=== PATIENT | female | born 1985 | race African-American/Black ===

== ENCOUNTER 2016-08-08 19:51 | Emergency (ER) | payer SELFPAY ==
[2016-08-08 20:09] VITALS: BP 156/107
[2016-08-08] MEDS ORDERED: Orphenadrine 100 MG Tab.ER PO STA (22:10)
--- NOTE | 2016-08-08 22:17 | EDM.PDOC ---
ED HPI GENERAL MEDICAL PROBLEM - General Chief Complaint: Back Pain or Injury Stated Complaint: BACK PAIN Time Seen by Provider: 08/08/16 20:08 Source of Information: Reports: Patient, RN Notes Reviewed History Limitations: Reports: No Limitations - History of Present Illness INITIAL COMMENTS - FREE TEXT/NARRATIVE: The patient states that she developed right flank pain that radiated to her right lower quadrant this past Sunday morning, 08/06/2016. It is throbbing in character and constant. She has not identified any modifiers. No recent fever, chills, nausea, vomiting, constipation, or diarrhea. She states that she does not have any dysuria, but she has been urinating frequently. She states that she had similar symptoms about a year ago, except that the pain at that time was modified with position. This recent pain is not. She did not seek medical evaluation, and states that it eventually resolved after 3-4 days. The patient states that she had some vaginal spotting yesterday, 08/07/2016. The patient does not have a PCP. 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 Endocrine/Metabolic History: Reports: Obesity/BMI 30+ Social & Family History - Family History Family Medical History: Noncontributory - Tobacco Use Smoking Status *Q: Never Smoker - Caffeine Use Caffeine Use: Reports: Coffee - Alcohol Use Alcohol Use History: Yes Alcohol Use Frequency: Socially - Recreational Drug Use Recreational Drug Use: No - Living Situation & Occupation Living situation: Reports: Single, with Significant Other (Boyfriend) Occupation: Unemployed ED ROS GENERAL - Review of Systems Review Of Systems: See Below Constitutional: Reports: No Symptoms HEENT: Reports: No Symptoms Respiratory: Reports: No Symptoms Cardiovascular: Reports: No Symptoms Endocrine: Reports: No Symptoms GI/Abdominal: Reports: No Symptoms : Reports: No Symptoms Musculoskeletal: Reports: No Symptoms Skin: Reports: No Symptoms Neurological: Reports: No Symptoms Psychiatric: Reports: No Symptoms Hematologic/Lymphatic: Reports: No Symptoms Immunologic: Reports: No Symptoms ED EXAM, GENERAL - Physical Exam Exam: See Below Exam Limited By: No Limitations General Appearance: Alert, WD/WN, No Apparent Distress Eye Exam: Bilateral Eye: Normal Inspection Ears: Normal External Exam, Hearing Grossly Normal Nose: Normal Inspection, No Blood Throat/Mouth: Normal Inspection, Normal Lips, Normal Voice, No Airway Compromise Head: Atraumatic, Normocephalic Neck: Normal Inspection, Full Range of Motion Respiratory/Chest: No Respiratory Distress, Lungs Clear, Normal Breath Sounds, No Accessory Muscle Use Cardiovascular: Normal Peripheral Pulses, Regular Rate, Rhythm, No Gallop, No JVD, No Murmur, No Rub GI/Abdominal: Normal Bowel Sounds, Soft, Non-Tender, No Organomegaly, No Distention, No Abnormal Bruit, No Mass, Other (Obese) (Female) Exam: Deferred Rectal (Female) Exam: Deferred Back Exam: Normal Inspection, Full Range of Motion. No: CVA Tenderness (L), CVA Tenderness (R) Extremities: Normal Inspection, Normal Range of Motion, No Pedal Edema, Normal Capillary Refill Neurological: Alert, Oriented, Normal Cognition, No Motor/Sensory Deficits Psychiatric: Normal Affect Skin Exam: Warm, Dry, Intact, Normal Color, No Rash Lymphatic: No Adenopathy Course - Vital Signs Last Recorded V/S: Last Vital Signs Temp 36.7 C 08/08/16 20:04 Pulse 75 08/08/16 20:04 Resp 18 08/08/16 20:04 BP 156/107 H 08/08/16 20:04 Pulse Ox 100 08/08/16 20:04 - Orders/Labs/Meds Labs: Laboratory Tests 08/08/16 08/08/16 Range/Units 21:00 21:00 Urine Color Yellow (Yellow) Urine Appearance Clear (Clear) Urine pH 6.0 (5.0-8.0) Ur Specific [place] > or = 1.030 (1.005-1.030) Urine Protein Negative (Negative) Urine Glucose (UA) Negative (Negative) Urine Ketones Negative (Negative) Urine Occult Blood Negative (Negative) Urine Nitrite Negative (Negative) Urine Bilirubin Negative (Negative) Urine Urobilinogen 0.2 (0.2-1.0) Ur Leukocyte Esterase Negative (Negative) Urine RBC 0-5 (0-5) /hpf Urine WBC 0-5 (0-5) /hpf Ur Epithelial Cells 0-5 (0-5) /hpf Urine Bacteria Not seen (FEW) /hpf Urine Mucus Few (FEW) /hpf Urine HCG, Qual Negative (NEGATIVE) Meds: Medications Discontinued Medications Generic Name Dose Route Start Last Admin Trade Name Teresa PRN Reason Stop Dose Admin Orphenadrine Citrate 100 mg 08/08/16 22:10 08/08/16 22:15 Norflex PO 08/08/16 22:11 100 mg ONETIME STA Administration - Re-Assessments/Exams Free Text/Narrative Re-Assessment/Exam: 08/08/16 22:12 Urinalysis results discussed with the patient. The patient's urinalysis is completely normal, with no microscopic hematuria or suggestion of a UTI. This makes a ureterolith highly unlikely. The patient's pain is therefore most likely due to a muscle spasm. I will start the patient on Norflex and e- prescribe the same. I will refer her to the clinic for follow-up, should her symptoms persist. Departure - Departure Time of Disposition: 22:13 Disposition: Home, Self-Care 01 Condition: Good Clinical Impression: Muscle spasm of back - Discharge Information Prescriptions: Orphenadrine [Norflex] 1 tab PO Q12H #20 tab.er Instructions: Muscle Cramps and Spasms Referrals: PCP,None [Primary Care Provider] - Estefany Langford PA-C [Physician Tip Puncher] - Forms: ED Department Discharge Additional Instructions: You were seen in the emergency room for right flank pain, radiating to your right groin. Workup in the ER included a urinalysis and urine test. Your tests were entirely normal. No blood in your urine makes a kidney stone highly unlikely. Based on your history and physical examination, it is MOST LIKELY that your pain is due to a muscle spasm. You have been started on the muscle relaxant Norflex. Take 1 tablet every 12 hours, as prescribed. If your symptoms persist, please follow-up with Estefany Langford in the clinic. If any other problems, please do not hesitate to return to the ER.
== END 2016-08-08 22:25 | disposition home or self-care (01) ==
LOC: JD.ED 19:51
DX: M62.830 Muscle spasm of back (principal); E66.9 Obesity, unspecified; Z68.36 Body mass index [BMI] 36.0-36.9, adult
CPT/HCPCS: 81001; 81025; 99284; A9270; P9612; 99283

== ENCOUNTER 2019-11-12 11:07 | Inpatient (IN) | payer SELFPAY ==
[2019-11-12] MEDS ORDERED: Nalbuphine 10 MG/ML Syringe IVPUSH PRN (15:03)
[2019-11-12] MEDS ORDERED: Sodium Chloride 0.9% 10 ML Syringe FLUSH PRN (15:03)
[2019-11-12] MEDS ORDERED: Oxytocin/Lactated Ringers 10 UNIT/1,000 ML BAG IV SCH ×2 (15:03)
[2019-11-12] MEDS ORDERED: Calcium Gluconate 10% 1 GM/10 ML SDV IV PRN (15:03)
--- NOTE | 2019-11-12 15:13 | PCM.LDHP ---
L&D History of Present Illness - General Date of Service: 11/12/19 Admit Problem/Dx: Patient Status Order with Admit Dx/Problem 11/12/19 15:03 Patient Status [ADT] Routine Admission Diagnosis/Problem Admission Diagnosis/Problem Gestational hypertension Source of Information: Patient History Limitations: Reports: No Limitations - History of Present Illness Introduction:: Mallorie Montgomery is a 34-year-old -0-0-0 at 37 weeks 6 days (KIKE 11/27/2019) who presents for evaluation of possible gestational hypertension. She was seen in the clinic prior to being sent down to labor and delivery with an elevated blood pressure of 144/94. She denied any headaches, vision changes or epigastric pain. She was otherwise doing well at that visit and was only having some irregular contractions that she was feeling several times per hour. She denied any leaking of fluid or vaginal bleeding. She was feeling good movement. Associated Symptoms: Denies: vaginal bleeding, vaginal discharge, vaginal fluid Present Illness Comments:: Mallorie Montgomery is a 34-year-old -0-0-0 female at 37 weeks 6 days (KIKE 11/27/2019) who presents for evaluation of possible gestational hypertension after being seen in the clinic with elevated blood pressures there. She has had routine care with myself, Dr. Henriquez, starting at 10 weeks gestational age. Her has been overall uncomplicated until her visit in the office on 11/12/2019. She received Tdap vaccine on 10/08/2019. She declined flu vaccine in . Her is complicated by: * History of aspirin allergy. She did not take aspirin throughout for preeclampsia prophylaxis due to this allergy. Patient also has allergy to ibuprofen. Recommend avoid aspirin or ibuprofen after delivery. * ancestry with normal hemoglobinopathy testing * Carpal tunnel syndrome in bilateral hands in labs Blood type: O+ Antibody screen: Negative First trimester hematocrit/hemoglobin: 40.0%/13.2 on 05/07/2019 Platelets: 267 on 05/07/2019 Urine culture: Mixed kenny suggestive of contamination Rubella status: Immune Hepatitis B surface antigen: Negative RPR: Negative HIV: Negative Gonorrhea: Negative Chlamydia: Negative Hemoglobin solubility: Negative screening Anatomy ultrasound: Normal, no abnormalities, weight in the 40th percentile on most recent ultrasound on 08/06/2019, normal fluid at that time One hour glucose tolerance test: 114 Second trimester hematocrit/hemoglobin: 37.1%/12.2 on 09/10/2019 Platelets: 215 on 09/10/2019 GBS status: Negative on 11/05/2019 - Related Data Allergies/Adverse Reactions: Allergies Allergy/AdvReac Type Severity Reaction Status Date / Time No Known Allergies Allergy Verified 08/08/16 20:09 Home Medications: Home Meds Orphenadrine [Norflex] 1 tab PO Q12H #20 tab.er 08/08/16 [Rx] Past Medical History - Past Health History Medical/Surgical History: Denies 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 : 1 Para: 0 Endocrine/Metabolic History: Reports: Obesity/BMI 30+ Other Endocrine/Metabolic History: PCOS Social & Family History - Family History Family Medical History: Noncontributory - Tobacco Use Smoking Status *Q: Never Smoker Tobacco Use Within Last Twelve Months: No - Tobacco Core Measures Tobacco Use/Smoking Within Last 30 Days: No Smokeless Tobacco Use in Last 30 Days: No - Caffeine Use Caffeine Use: Reports: Coffee - Alcohol Use Alcohol Use History: No - Recreational Drug Use Recreational Drug Use: No Drug Use in Last 12 Months: No - Living Situation & Occupation Living situation: Reports: Single, with Significant Other (Boyfriend) Occupation: Unemployed H&P Review of Systems - Review of Systems: Review Of Systems: See Below General: Denies: Fever, Malaise, Weakness, Fatigue, Night Sweats HEENT: Reports: Glasses. Denies: Headaches, Hearing Changes, Post Nasal Drip, Sinus Congestion, Sore Throat, Visual Changes Pulmonary: Denies: Shortness of Breath, Wheezing, Pleuritic Chest Pain, Cough Cardiovascular: Denies: Chest Pain, Palpitations, Dyspnea on Exertion, Orthopnea Gastrointestinal: Reports: Constipation. Denies: Abdominal Pain, Diarrhea, Nausea, Vomiting Genitourinary: Denies: Dysuria, Frequency, Burning, Pain, Urgency Musculoskeletal: Reports: Back Pain (and hip pain of ) Skin: Denies: Rash, Lesions Psychiatric: Denies: Depression, Anxiety Neurological: Reports: Numbness (left arm), Tingling (left arm). Denies: Confusion, Difficulty Walking Hematologic/Lymphatic: Denies: Anemia L&D Exam - Exam Exam: See Below - Vital Signs Vital Signs: Last Vital Signs Temp Pulse Resp 16 11/12/19 11:18 BP 140/97 H 11/12/19 11:18 Pulse Ox 97 11/12/19 11:18 Weight: 117.027 kg - OB Specific Fundal Height In cm: 38 Contraction Duration (sec): 45-90 Contraction Frequency (min): 2-11 Contraction Intensity: Mild to Moderate Movement: Active Heart Tones: Present Heart Tones per Min: 140 (+15 x 15 accelerations, no decelerations) Heart Rate (FHR) Variability: Moderate (6-25 bmp) Presentation: Vertex Estimated Weight: 7-7.5 Lbs by Leopolds - Almaraz Score Almaraz Score Cervix Position: Anterior Almaraz Score Consistency: Soft Almaraz Score Effacement: >80% (90%) Almaraz Score Dilation: 1-2 cm (1 cm) Almaraz Score 's Station: -1 ,0 (-1) Almaraz Score Total: 10 - Exam General: Alert, Oriented HEENT: Conjunctiva Clear, EOMI Neck: Supple, Trachea Midline Lungs: Clear to Auscultation, Normal Respiratory Effort GI/Abdominal Exam: Soft, Non-Tender, No Distention, Other (Gravid). No: Guarding, Rigid, Rebound Genitourinary: Normal external exam Extremities: Normal Inspection, Non-Tender, Pedal Edema (trace in bilateral lower extremities) Skin: Warm, Dry, Intact Psychiatric: Alert, Normal Affect, Normal Mood - Patient Data Lab Results Last 24 hrs: Laboratory Results - last 24 hr 11/12/19 11/12/19 11/12/19 Range/Units 11:35 11:45 11:51 WBC 6.15 (3.98-10.04) K/mm3 RBC 4.77 (3.98-5.22) M/mm3 Hgb 12.5 (11.2-15.7) gm/dl Hct 37.7 (34.1-44.9) % MCV 79.0 L (79.4-94.8) fl MCH 26.2 (25.6-32.2) pg MCHC 33.2 (32.2-35.5) g/dl RDW Std Deviation 40.4 (36.4-46.3) fL Plt Count 166 L (182-369) K/mm3 MPV 12.8 H (9.4-12.3) fl Neut % (Auto) 56.0 (34.0-71.1) % Lymph % (Auto) 30.9 (19.3-51.7) % Gordon % (Auto) 11.9 (4.7-12.5) % Eos % (Auto) 0.5 L (0.7-5.8) Baso % (Auto) 0.2 (0.1-1.2) % Neut # (Auto) 3.45 (1.56-6.13) K/mm3 Lymph # (Auto) 1.90 (1.18-3.74) K/mm3 Gordon # (Auto) 0.73 H (0.24-0.36) K/mm3 Eos # (Auto) 0.03 L (0.04-0.36) K/mm3 Baso # (Auto) 0.01 (0.01-0.08) K/mm3 Sodium (136-145) mEq/L Potassium (3.5-5.1) mEq/L Chloride (98-107) mEq/L Carbon Dioxide (21-32) mEq/L Anion Gap (5-15) BUN (7-18) mg/dL Creatinine (0.55-1.02) mg/dL Est Cr Clr Drug Dosing Estimated GFR (MDRD) (>60) mL/min BUN/Creatinine Ratio (14-18) Glucose (74-106) mg/dL Calcium (8.5-10.1) mg/dL Total Bilirubin (0.2-1.0) mg/dL AST (15-37) U/L ALT (14-59) U/L Alkaline Phosphatase (46-116) U/L Total Protein (6.4-8.2) g/dl Albumin (3.4-5.0) g/dl Globulin gm/dL Albumin/Globulin Ratio (1-2) Ur Random Creatinine 135.5 H (30.0-125.0) mg/dL U Random Total Protein 17.1 H (0.0-11.8) mg/dL Protein/Creatinin Ratio 126.2 (0-149) mg/g SARS CoV-2 RNA Rapid JOSE MARTIN Negative (NEGATIVE) 11/12/19 Range/Units 11:51 WBC (3.98-10.04) K/mm3 RBC (3.98-5.22) M/mm3 Hgb (11.2-15.7) gm/dl Hct (34.1-44.9) % MCV (79.4-94.8) fl MCH (25.6-32.2) pg MCHC (32.2-35.5) g/dl RDW Std Deviation (36.4-46.3) fL Plt Count (182-369) K/mm3 MPV (9.4-12.3) fl Neut % (Auto) (34.0-71.1) % Lymph % (Auto) (19.3-51.7) % Gordon % (Auto) (4.7-12.5) % Eos % (Auto) (0.7-5.8) Baso % (Auto) (0.1-1.2) % Neut # (Auto) (1.56-6.13) K/mm3 Lymph # (Auto) (1.18-3.74) K/mm3 Gordon # (Auto) (0.24-0.36) K/mm3 Eos # (Auto) (0.04-0.36) K/mm3 Baso # (Auto) (0.01-0.08) K/mm3 Sodium 137 (136-145) mEq/L Potassium 3.8 (3.5-5.1) mEq/L Chloride 103 (98-107) mEq/L Carbon Dioxide 20 L (21-32) mEq/L Anion Gap 17.8 H (5-15) BUN 6 L (7-18) mg/dL Creatinine 0.8 (0.55-1.02) mg/dL Est Cr Clr Drug Dosing TNP Estimated GFR (MDRD) > 60 (>60) mL/min BUN/Creatinine Ratio 7.5 L (14-18) Glucose 81 (74-106) mg/dL Calcium 8.9 (8.5-10.1) mg/dL Total Bilirubin 0.5 (0.2-1.0) mg/dL AST 19 (15-37) U/L ALT 21 (14-59) U/L Alkaline Phosphatase 193 H (46-116) U/L Total Protein 7.2 (6.4-8.2) g/dl Albumin 2.6 L (3.4-5.0) g/dl Globulin 4.6 gm/dL Albumin/Globulin Ratio 0.6 L (1-2) Ur Random Creatinine (30.0-125.0) mg/dL U Random Total Protein (0.0-11.8) mg/dL Protein/Creatinin Ratio (0-149) mg/g SARS CoV-2 RNA Rapid JOSE MARTIN (NEGATIVE) Result Diagrams: 11/12/19 11:51 11/12/19 11:51 - Problem List (1) 37 weeks gestation of SNOMED Code(s): 47072507 ICD Code: Z3A.37 - 37 WEEKS GESTATION OF Status: Acute Current Visit: Yes (2) Gestational hypertension SNOMED Code(s): 806978712 ICD Code: O13.9 - GESTATIONAL HTN W/O SIGNIFICANT PROTEINURIA, UNSP TRIMESTER Status: Acute Current Visit: Yes (3) Obesity affecting SNOMED Code(s): 501882820222, 753178687715 ICD Code: O99.210 - OBESITY COMPLICATING , UNSPECIFIED TRIMESTER Status: Acute Current Visit: Yes (4) ancestry requiring population-specific genetic screening SNOMED Code(s): 90139948, 045971818, 010068981 ICD Code: Z13.79 - ENCNTR FOR OTH SCREENING FOR GENETIC AND CHROMSOML ANOMALIES Status: Acute Current Visit: Yes (5) Aspirin allergy SNOMED Code(s): 416950384 ICD Code: Z88.8 - ALLERGY STATUS TO OTH DRUG/MEDS/BIOL SUBST STATUS Status: Acute Current Visit: Yes Problem List Initiated/Reviewed/Updated: Yes Orders Last 24hrs: Active Orders 24 hr Category Date Time Status Patient Status [ADT] Routine ADT 11/12/19 15:03 Active Activity as Tolerated [RC] PFP Care 11/12/19 15:03 Active Bedrest [RC] ASDIRECTED Care 11/12/19 15:03 Active Communication Order [RC] ASDIRECTED Care 11/12/19 15:03 Active Heart Tones [RC] ASDIRECTED Care 11/12/19 15:03 Active Monitoring [RC] CONTINUOUS Care 11/12/19 15:03 Active Non Stress Test [RC] PER UNIT ROUTINE Care 11/12/19 15:03 Active Notify Provider Status Change [RC] ASDIRECTED Care 11/12/19 15:03 Active Notify Provider Vital Signs [RC] ASDIRECTED Care 11/12/19 15:03 Active Notify Provider [RC] ASDIRECTED Care 11/12/19 15:03 Active Notify Provider [RC] PFP Care 11/12/19 15:03 Active Notify Provider [RC] PRN Care 11/12/19 15:03 Active Oxygen Therapy [RC] PRN Care 11/12/19 15:03 Active Peripheral IV Care [RC] . DIRECTED Care 11/12/19 15:03 Active Pump Management, Intrathecal [RC] ASDIRECTED Care 11/12/19 15:03 Active Vital Signs [RC] ASDIRECTED Care 11/12/19 15:03 Active Vital Signs [RC] PER UNIT ROUTINE Care 11/12/19 15:03 Active Regular Diet [DIET] Diet 11/12/19 Lunch Active RAPID PLASMA REAGIN,RPR [CHEM] Routine Lab 11/12/19 15:03 Ordered Calcium Gluconate Med 11/12/19 15:03 Ordered 1 gm IV ASDIRECTED PRN Lactated Ringers [Ringers, Lactated] 1,000 ml Med 11/12/19 15:03 Active IV ASDIRECTED Nalbuphine [Nubain] Med 11/12/19 15:03 Ordered 10 mg IVPUSH Q2H PRN Oxytocin/Lactated Ringers [Pitocin in LR 10 Units/1,000 Med 11/12/19 15:03 Active ML] 10 unit in 1,000 ml IV .CONTINUOUS Oxytocin/Lactated Ringers [Pitocin in LR 10 Units/1,000 Med 11/12/19 15:03 Active ML] 10 unit in 1,000 ml IV TITRATE Sodium Chloride 0.9% [Saline Flush] Med 11/12/19 15:03 Ordered 10 ml FLUSH ASDIRECTED PRN Blood Pressure [OM.PC] ASDIRECTED Oth 11/12/19 15:03 Ordered Deep Tendon Reflexes [WOMSER] ASDIRECTED Oth 11/12/19 15:03 Ordered Electronic Heart Tones Ext w TOCO [WOMSER] Oth 11/12/19 15:03 Ordered Routine Electronic Heart Tones Internal [WOMSER] Per Unit Oth 11/12/19 15:03 Ordered Routine Peripheral IV Insertion Adult [OM.PC] Routine Oth 11/12/19 15:03 Ordered Resuscitation Status Routine Resus Stat 11/12/19 11:18 Ordered Medication Orders Calcium Gluconate (Calcium Gluconate) 1 gm IV ASDIRECTED PRN PRN Reason: respiratory distress Lactated Ringer's (Ringers, Lactated) 1,000 mls @ 100 mls/hr IV ASDIRECTED ARTURO Oxytocin/Lactated Ringer's (Pitocin In Lr 10 Units/1,000 Ml) 10 unit in 1,000 mls @ 12 mls/hr IV TITRATE ARTURO; Protocol Oxytocin/Lactated Ringer's (Pitocin In Lr 10 Units/1,000 Ml) 10 unit in 1,000 mls @ 100 mls/hr IV .CONTINUOUS ARTURO Nalbuphine HCl (Nubain) 10 mg IVPUSH Q2H PRN PRN Reason: Pain Sodium Chloride (Saline Flush) 10 ml FLUSH ASDIRECTED PRN PRN Reason: Keep Vein Open Assessment/Plan Comment:: Mallorie Montgomery is a 34-year-old at 37 weeks 6 days (KIKE 11/27/2019) who presents with gestational hypertension that was initially diagnosed with elevated blood pressure in the clinic and continued on labor and delivery. Plan is for induction of labor due to gestational hypertension. is complicated by history of aspirin allergy and ancestry. Refer to observation for medically indicated induction of labor for gestational hypertension Start Pitocin for induction of labor Continuous monitoring Place IV and have Lactated Ringer's at 125 ml/hr May have small amounts of regular diet Activity as tolerated May have epidural as desired Plans to breast-feed after delivery Close monitoring of vitals to monitor for any severe range blood pressures that may require treatment with antihypertensive medications Patient undecided about possible placement of transcervical Epps bulb and will consider placement at next cervical exam. Anticipate vaginal delivery unless otherwise indicated David Henriquez MD 3:15 PM 11/12/2019
[2019-11-12] MEDS: Lactated Ringers 1,000 ML IV SCH ×3 (15:45→22:54)
[2019-11-12] MEDS ORDERED: ePHEDrine 50 MG/ML SDV IVPUSH PRN (17:20)
[2019-11-12] MEDS ORDERED: Ondansetron 4 MG/2 ML SDV IVPUSH PRN (17:20)
[2019-11-12] MEDS ORDERED: fentaNYL 100 MCG/2 ML SDV EPIDUR PRN (17:20)
--- NOTE | 2019-11-12 17:28 | PCM.PREANE ---
Preanesthetic Assessment - Anesthesia/Transfusion/Family Hx Anesthesia History: No Prior Anesthesia Family History of Anesthesia Reaction: No Transfusion History: No Prior Transfusion(s) Intubation History: Unknown - Review of Systems General: No Symptoms Cardiovascular: No Symptoms (Gestational HTN allergy to aspirin), Dyspnea on Exertion Gastrointestinal: No Symptoms (GERD), Constipation Neurological: No Symptoms, Numbness (bilateral hands) Other: Reports: None - Physical Assessment NPO Status Date: 11/12/19 NPO Status Time: 14:30 Vital Signs: Last Vital Signs Temp Pulse Resp 16 11/12/19 11:18 BP 140/97 H 11/12/19 11:18 Pulse Ox 97 11/12/19 11:18 Temp: 98.4 HR: 107 Height: 1.68 m Weight: 117.027 kg ASA Class: 2 Mental Status: Alert & Oriented x3 Airway Class: Mallampati = 2 Dentition: Reports: Normal Dentition, Caries Thyro-Mental Finger Breadths: 3 Mouth Opening Finger Breadths: 3 ROM/Head Extension: Full Lungs: Clear to Auscultation, Normal Respiratory Effort Cardiovascular: Regular Rate, Regular Rhythm, No Murmurs - Lab Values: Laboratory Last Values WBC 6.15 K/mm3 (3.98-10.04) 11/12/19 11:51 RBC 4.77 M/mm3 (3.98-5.22) 11/12/19 11:51 Hgb 12.5 gm/dl (11.2-15.7) 11/12/19 11:51 Hct 37.7 % (34.1-44.9) 11/12/19 11:51 MCV 79.0 fl (79.4-94.8) L 11/12/19 11:51 MCH 26.2 pg (25.6-32.2) 11/12/19 11:51 MCHC 33.2 g/dl (32.2-35.5) 11/12/19 11:51 RDW Std Deviation 40.4 fL (36.4-46.3) 11/12/19 11:51 Plt Count 166 K/mm3 (182-369) L 11/12/19 11:51 MPV 12.8 fl (9.4-12.3) H 11/12/19 11:51 Neut % (Auto) 56.0 % (34.0-71.1) 11/12/19 11:51 Lymph % (Auto) 30.9 % (19.3-51.7) 11/12/19 11:51 [place] % (Auto) 11.9 % (4.7-12.5) 11/12/19 11:51 Eos % (Auto) 0.5 (0.7-5.8) L 11/12/19 11:51 Baso % (Auto) 0.2 % (0.1-1.2) 11/12/19 11:51 Neut # (Auto) 3.45 K/mm3 (1.56-6.13) 11/12/19 11:51 Lymph # (Auto) 1.90 K/mm3 (1.18-3.74) 11/12/19 11:51 [place] # (Auto) 0.73 K/mm3 (0.24-0.36) H 11/12/19 11:51 Eos # (Auto) 0.03 K/mm3 (0.04-0.36) L 11/12/19 11:51 Baso # (Auto) 0.01 K/mm3 (0.01-0.08) 11/12/19 11:51 Sodium 137 mEq/L (136-145) 11/12/19 11:51 Potassium 3.8 mEq/L (3.5-5.1) 11/12/19 11:51 Chloride 103 mEq/L (98-107) 11/12/19 11:51 Carbon Dioxide 20 mEq/L (21-32) L 11/12/19 11:51 Anion Gap 17.8 (5-15) H 11/12/19 11:51 BUN 6 mg/dL (7-18) L 11/12/19 11:51 Creatinine 0.8 mg/dL (0.55-1.02) 11/12/19 11:51 Est Cr Clr Drug Dosing TNP 11/12/19 11:51 Estimated GFR (MDRD) > 60 mL/min (>60) 11/12/19 11:51 BUN/Creatinine Ratio 7.5 (14-18) L 11/12/19 11:51 Glucose 81 mg/dL (74-106) 11/12/19 11:51 Calcium 8.9 mg/dL (8.5-10.1) 11/12/19 11:51 Total Bilirubin 0.5 mg/dL (0.2-1.0) 11/12/19 11:51 AST 19 U/L (15-37) 11/12/19 11:51 ALT 21 U/L (14-59) 11/12/19 11:51 Alkaline Phosphatase 193 U/L (46-116) H 11/12/19 11:51 Total Protein 7.2 g/dl (6.4-8.2) 11/12/19 11:51 Albumin 2.6 g/dl (3.4-5.0) L 11/12/19 11:51 Globulin 4.6 gm/dL 11/12/19 11:51 Albumin/Globulin Ratio 0.6 (1-2) L 11/12/19 11:51 Ur Random Creatinine 135.5 mg/dL (30.0-125.0) H 11/12/19 11:35 U Random Total Protein 17.1 mg/dL (0.0-11.8) H 11/12/19 11:35 Protein/Creatinin Ratio 126.2 mg/g (0-149) 11/12/19 11:35 SARS CoV-2 RNA Rapid JOSE MARTIN Negative (NEGATIVE) 11/12/19 11:45 All labs reviewed and noted and within acceptable ranges to proceed with epidural if desired. - Allergies Allergies/Adverse Reactions: Allergies Allergy/AdvReac Type Severity Reaction Status Date / Time aspirin Allergy Hives Verified 11/12/19 17:35 ibuprofen Allergy Hives Verified 11/12/19 17:35 - Anesthesia Plan Pre-Op Medication Ordered: None - Acknowledgements Anesthesia Type Planned: Epidural Pt an Appropriate Candidate for the Planned Anesthesia: Yes Alternatives and Risks of Anesthesia Discussed w Pt/Guardian: Yes Pt/Guardian Understands and Agrees with Anesthesia Plan: Yes PreAnesthesia Questionnaire - Past Health History Medical/Surgical History: Denies Medical/Surgical History 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 Endocrine/Metabolic History: Reports: Obesity/BMI 30+ Other Endocrine/Metabolic History: PCOS - Past Surgical History Endocrine Surgical History: Reports: None - SUBSTANCE USE Smoking Status *Q: Never Smoker Tobacco Use Within Last Twelve Months: No Recreational Drug Use History: No - HOME MEDS Home Medications: Home Meds B1/B2/B3/B5/B6/Iron/Meth/Choln [Geritol Tonic] 5 ml PO DAILY 11/12/19 [History] Pnv No.95/Ferrous Fum/Folic AC [ Tablet] 1 tab PO DAILY 11/12/19 [History] - CURRENT (IN HOUSE) MEDS Current Meds: Current Medications Calcium Gluconate (Calcium Gluconate) 1 gm IV ASDIRECTED PRN PRN Reason: respiratory distress Ephedrine Sulfate (Ephedrine Sulfate) 5 mg IVPUSH ASDIRECTED PRN PRN Reason: Hypotension Fentanyl (Sublimaze) 100 mcg EPIDUR Q3H PRN PRN Reason: Pain Fentanyl/Bupivacaine HCl (Fentanyl/Bupivacaine/Ns 2 Mcg-0.125% 100 Ml) 100 ml EPIDUR ASDIRECTED ARTURO Lactated Ringer's (Ringers, Lactated) 1,000 mls @ 100 mls/hr IV ASDIRECTED ARTURO Last Admin: 11/12/19 15:45 Dose: 100 mls/hr Documented by: Oxytocin/Lactated Ringer's (Pitocin In Lr 10 Units/1,000 Ml) 10 unit in 1,000 mls @ 12 mls/hr IV TITRATE ARTURO; Protocol Last Admin: 11/12/19 15:45 Dose: 2 munits/min, 12 mls/hr Documented by: Oxytocin/Lactated Ringer's (Pitocin In Lr 10 Units/1,000 Ml) 10 unit in 1,000 mls @ 100 mls/hr IV .CONTINUOUS ARTURO Miscellaneous Medication (Phenylephrine 1 Mg/10 Ml-Ns) 1 mg IVPUSH ONETIME ARTURO Nalbuphine HCl (Nubain) 10 mg IVPUSH Q2H PRN PRN Reason: Pain Ondansetron HCl (Zofran) 4 mg IVPUSH ONETIME PRN PRN Reason: Nausea/Vomiting Sodium Chloride (Saline Flush) 10 ml FLUSH ASDIRECTED PRN PRN Reason: Keep Vein Open
--- NOTE | 2019-11-12 20:19 | PCM.PNLD ---
Labor Progress Note - VS & Meds Vital Signs: Last Vital Signs Temp Pulse Resp 16 11/12/19 11:18 BP 140/97 H 11/12/19 11:18 Pulse Ox 97 11/12/19 11:18 Active Medications: Current Medications Calcium Gluconate (Calcium Gluconate) 1 gm IV ASDIRECTED PRN PRN Reason: respiratory distress Ephedrine Sulfate (Ephedrine Sulfate) 5 mg IVPUSH ASDIRECTED PRN PRN Reason: Hypotension Fentanyl (Sublimaze) 100 mcg EPIDUR Q3H PRN PRN Reason: Pain Fentanyl/Bupivacaine HCl (Fentanyl/Bupivacaine/Ns 2 Mcg-0.125% 100 Ml) 100 ml EPIDUR ASDIRECTED ARTURO Lactated Ringer's (Ringers, Lactated) 1,000 mls @ 100 mls/hr IV ASDIRECTED ARTURO Last Admin: 11/12/19 19:25 Dose: 100 mls/hr Documented by: Oxytocin/Lactated Ringer's (Pitocin In Lr 10 Units/1,000 Ml) 10 unit in 1,000 mls @ 12 mls/hr IV TITRATE ARTURO; Protocol Last Titration: 11/12/19 20:10 Dose: 14 munits/min, 84 mls/hr Documented by: Oxytocin/Lactated Ringer's (Pitocin In Lr 10 Units/1,000 Ml) 10 unit in 1,000 mls @ 100 mls/hr IV .CONTINUOUS ARTURO Miscellaneous Medication (Phenylephrine 1 Mg/10 Ml-Ns) 1 mg IVPUSH ONETIME ARTURO Nalbuphine HCl (Nubain) 10 mg IVPUSH Q2H PRN PRN Reason: Pain Ondansetron HCl (Zofran) 4 mg IVPUSH ONETIME PRN PRN Reason: Nausea/Vomiting Sodium Chloride (Saline Flush) 10 ml FLUSH ASDIRECTED PRN PRN Reason: Keep Vein Open - Uterine Contractions Contraction Frequency (min): 2-4 Contraction Duration (sec): 30-75 Contraction Intensity: Mild to Moderate Uterine Resting Tone: Soft - Monitoring Monitor Mode: Doppler/Auscultation Heart Rate (FHR) Baseline: 135 Heart Rate (FHR) Per Doppler: 135 Heart Rate (FHR) Variability: Moderate (6-25 bmp) Accelerations: Present, 15x15 Decelerations: None Strip Review: Category I - Vaginal Exam Dilation (cm): 1 Effacement (Percent): 90 Station: -1 Cervical Position: Anterior Sterile Vaginal Exam Performed By: David Henriquez Vaginal Exam Comment: Transcervical 18 [place] Epps bulb placed with manual placement. Epps bulb filled with 50 mL of sterile saline. Mother and tolerated procedure without difficulty. - Labor Progress (Free Text) Labor Progress: Mallorie Montgomery is a 34-year-old -0-0-0 female at 37 weeks 6 days undergoing medically indicated induction of labor for gestational hypertension Patient had placement of in 18 [place] Epps bulb transcervically with manual placement and the bulb filled with 50 mL of sterile saline. Mother and tolerated procedure without difficulty. Patient with minimal progress since starting Pitocin. Continue Pitocin for induction of labor Continue routine vitals and monitor for any severe range blood pressures that may require treatment with antihypertensive medications Continue regular diet Continuous monitoring Patient may have epidural as desired Anticipate vaginal delivery unless otherwise indicated David Henriquez MD 8:19 PM 11/12/2019
--- NOTE | 2019-11-12 22:03 | PCM.PNLD ---
Labor Progress Note - VS & Meds Vital Signs: Last Vital Signs Temp Pulse Resp 16 11/12/19 11:18 BP 140/97 H 11/12/19 11:18 Pulse Ox 97 11/12/19 11:18 Active Medications: Current Medications Calcium Gluconate (Calcium Gluconate) 1 gm IV ASDIRECTED PRN PRN Reason: respiratory distress Ephedrine Sulfate (Ephedrine Sulfate) 5 mg IVPUSH ASDIRECTED PRN PRN Reason: Hypotension Fentanyl (Sublimaze) 100 mcg EPIDUR Q3H PRN PRN Reason: Pain Fentanyl/Bupivacaine HCl (Fentanyl/Bupivacaine/Ns 2 Mcg-0.125% 100 Ml) 100 ml EPIDUR ASDIRECTED ARTURO Lactated Ringer's (Ringers, Lactated) 1,000 mls @ 100 mls/hr IV ASDIRECTED ARTURO Last Admin: 11/12/19 19:25 Dose: 100 mls/hr Documented by: Oxytocin/Lactated Ringer's (Pitocin In Lr 10 Units/1,000 Ml) 10 unit in 1,000 mls @ 12 mls/hr IV TITRATE ARTURO; Protocol Last Titration: 11/12/19 20:10 Dose: 14 munits/min, 84 mls/hr Documented by: Oxytocin/Lactated Ringer's (Pitocin In Lr 10 Units/1,000 Ml) 10 unit in 1,000 mls @ 100 mls/hr IV .CONTINUOUS ARTURO Miscellaneous Medication (Phenylephrine 1 Mg/10 Ml-Ns) 1 mg IVPUSH ONETIME ARTURO Nalbuphine HCl (Nubain) 10 mg IVPUSH Q2H PRN PRN Reason: Pain Ondansetron HCl (Zofran) 4 mg IVPUSH ONETIME PRN PRN Reason: Nausea/Vomiting Sodium Chloride (Saline Flush) 10 ml FLUSH ASDIRECTED PRN PRN Reason: Keep Vein Open - Uterine Contractions Contraction Frequency (min): 2-5 Contraction Duration (sec): 30-75 Contraction Intensity: Strong Uterine Resting Tone: Soft - Monitoring Monitor Mode: Doppler/Auscultation Heart Rate (FHR) Baseline: 135 Heart Rate (FHR) Per Doppler: 135 Heart Rate (FHR) Variability: Moderate (6-25 bmp) Accelerations: Present, 15x15 Decelerations: Variable, Intermittent (<50% x 20 min) Strip Review: Category II - Vaginal Exam Dilation (cm): 6 Effacement (Percent): 90 Station: 0 Cervical Position: Anterior Sterile Vaginal Exam Performed By: David Henriquez Vaginal Exam Comment: Artificial rupture of membranes performed with return of moderate amount of clear fluid. Mother and tolerated without difficulty. Infant did have one variable deceleration shortly after rupture of membranes with smaller variable deceleration with the next contraction afterwards. - Labor Progress (Free Text) Labor Progress: Mallorie Montgomery is a 34-year-old -0-0-0 female at 37 weeks 6 days undergoing medically indicated induction of labor for gestational hypertension Patient underwent artificial rupture membranes with return of moderate amount of clear fluid. Mother and infant tolerated without difficulty. There was one variable deceleration shortly after rupture of membranes with a smaller variable deceleration with the next contraction afterwards. Continue Pitocin for induction of labor Continue routine vitals and monitor for any severe range blood pressures that may require treatment with antihypertensive medications Continue regular diet Continuous monitoring Patient may have epidural as desired Anticipate vaginal delivery unless otherwise indicated David Henriquez MD 10:04 PM 11/12/2019
[2019-11-12] MEDS: Bupivacaine/fentaNYL/NS 100 ML Bag EPIDUR SCH (22:52)
[2019-11-13] MEDS ORDERED: Bupivacaine 0.25% 10 ML SDV ONE
[2019-11-13] MEDS ORDERED: Lidocaine 1% 10 ML MDV ONE ×2
[2019-11-13] MEDS ORDERED: ePHEDrine Sulfate/0.9% NaCl/Pf 25 MG/5 ML SYRINGE IV ONE
[2019-11-13] MEDS: Lactated Ringers 1,000 ML IV SCH ×2 (00:38→04:09)
--- NOTE | 2019-11-13 02:00 | PCM.PNLD ---
Labor Progress Note - VS & Meds Vital Signs: Last Vital Signs Temp Pulse Resp 16 11/12/19 11:18 BP 140/97 H 11/12/19 11:18 Pulse Ox 97 11/12/19 11:18 Active Medications: Current Medications Calcium Gluconate (Calcium Gluconate) 1 gm IV ASDIRECTED PRN PRN Reason: respiratory distress Ephedrine Sulfate (Ephedrine Sulfate) 5 mg IVPUSH ASDIRECTED PRN PRN Reason: Hypotension Fentanyl (Sublimaze) 100 mcg EPIDUR Q3H PRN PRN Reason: Pain Last Admin: 11/12/19 22:51 Dose: 100 mcg Documented by: Fentanyl/Bupivacaine HCl (Fentanyl/Bupivacaine/Ns 2 Mcg-0.125% 100 Ml) 100 ml EPIDUR ASDIRECTED ARTURO Last Admin: 11/12/19 22:52 Dose: 100 ml Documented by: Lactated Ringer's (Ringers, Lactated) 1,000 mls @ 100 mls/hr IV ASDIRECTED ARTURO Last Admin: 11/13/19 00:38 Dose: 100 mls/hr Documented by: Oxytocin/Lactated Ringer's (Pitocin In Lr 10 Units/1,000 Ml) 10 unit in 1,000 mls @ 12 mls/hr IV TITRATE ARTURO; Protocol Last Titration: 11/12/19 23:57 Dose: 6 munits/min, 36 mls/hr Documented by: Oxytocin/Lactated Ringer's (Pitocin In Lr 10 Units/1,000 Ml) 10 unit in 1,000 mls @ 100 mls/hr IV .CONTINUOUS ARTURO Miscellaneous Medication (Phenylephrine 1 Mg/10 Ml-Ns) 1 mg IVPUSH ONETIME ARTURO Nalbuphine HCl (Nubain) 10 mg IVPUSH Q2H PRN PRN Reason: Pain Ondansetron HCl (Zofran) 4 mg IVPUSH ONETIME PRN PRN Reason: Nausea/Vomiting Sodium Chloride (Saline Flush) 10 ml FLUSH ASDIRECTED PRN PRN Reason: Keep Vein Open - Uterine Contractions Uterine Monitoring Mode: External [place] Contraction Frequency (min): 2-4 Contraction Duration (sec): 30-75 Contraction Intensity: Strong Uterine Resting Tone: Soft - Monitoring Monitor Mode: Spiral Electrode Heart Rate (FHR) Baseline: 140 Heart Rate (FHR) Variability: Moderate (6-25 bmp) Accelerations: Present, 15x15 Decelerations: Late (after placement of epidural with relative hypotension), Variable, Intermittent (<50% x 20 min) Strip Review: Category II - Vaginal Exam Dilation (cm): 6 Effacement (Percent): 90 Station: 1 Cervical Position: Anterior Sterile Vaginal Exam Performed By: David Henriquez Vaginal Exam Comment: Intrauterine pressure catheter placed without difficulty for close monitoring of contractions given the heart rate abnormalities that were previously seen. Mother and infant tolerated procedure without difficulty. - Labor Progress (Free Text) Labor Progress: Mallorie Montgomery is a 34-year-old -0-0-0 female at 38 weeks 0 days undergoing medically indicated induction of labor for gestational hypertension Patient with category 2 tracing with intermittent variable decelerations as well as prolonged early versus late decelerations. Difficult to monitor with external tocometer. Because of these abnormalities patient was recommended to have intrauterine pressure catheter. Intrauterine pressure catheter was placed without difficulty. Mother and infant tolerated without difficulty. Continue Pitocin for induction of labor Continue routine vitals and monitor for any severe range blood pressures that may require treatment with antihypertensive medications Continue regular diet Continuous monitoring Patient with epidural in place and has had several episodes of relative hypotension compared to previous elevated blood pressures. We will continue to work on blood pressure management and control. Anticipate vaginal delivery unless otherwise indicated David Henriquez MD 2:02 AM 11/13/2019
--- NOTE | 2019-11-13 07:37 | PCM.SN.2 ---
- Free Text/Narrative Note: 0720 in room pt request bolus, pain more in crotch, increase gtt to 5mls/hr VSS out of room at 0734.
--- NOTE | 2019-11-13 08:56 | PCM.SN.2 ---
- Free Text/Narrative Note: 1979 pt request in crease in epidural gtt level noted at T5-6 gtt increased to 8ml/hr VSS out of room at 0903
--- NOTE | 2019-11-13 08:56 | PCM.PNLD ---
Labor Progress Note - VS & Meds Vital Signs: Last Vital Signs Temp Pulse Resp 16 11/12/19 11:18 BP 140/97 H 11/12/19 11:18 Pulse Ox 97 11/12/19 11:18 Active Medications: Current Medications Calcium Gluconate (Calcium Gluconate) 1 gm IV ASDIRECTED PRN PRN Reason: respiratory distress Ephedrine Sulfate (Ephedrine Sulfate) 5 mg IVPUSH ASDIRECTED PRN PRN Reason: Hypotension Fentanyl (Sublimaze) 100 mcg EPIDUR Q3H PRN PRN Reason: Pain Last Admin: 11/12/19 22:51 Dose: 100 mcg Documented by: Fentanyl/Bupivacaine HCl (Fentanyl/Bupivacaine/Ns 2 Mcg-0.125% 100 Ml) 100 ml EPIDUR ASDIRECTED ARTURO Last Admin: 11/12/19 22:52 Dose: 100 ml Documented by: Lactated Ringer's (Ringers, Lactated) 1,000 mls @ 100 mls/hr IV ASDIRECTED ARTURO Last Admin: 11/13/19 04:09 Dose: 100 mls/hr Documented by: Oxytocin/Lactated Ringer's (Pitocin In Lr 10 Units/1,000 Ml) 10 unit in 1,000 mls @ 12 mls/hr IV TITRATE ARTURO; Protocol Last Titration: 11/13/19 07:40 Dose: 16 munits/min, 96 mls/hr Documented by: Oxytocin/Lactated Ringer's (Pitocin In Lr 10 Units/1,000 Ml) 10 unit in 1,000 mls @ 100 mls/hr IV .CONTINUOUS ARTURO Miscellaneous Medication (Phenylephrine 1 Mg/10 Ml-Ns) 1 mg IVPUSH ONETIME ARTURO Nalbuphine HCl (Nubain) 10 mg IVPUSH Q2H PRN PRN Reason: Pain Ondansetron HCl (Zofran) 4 mg IVPUSH ONETIME PRN PRN Reason: Nausea/Vomiting Sodium Chloride (Saline Flush) 10 ml FLUSH ASDIRECTED PRN PRN Reason: Keep Vein Open - Uterine Contractions Uterine Monitoring Mode: IUPC Contraction Frequency (min): 3-4 Contraction Duration (sec): 45-75 Contraction Intensity: Strong Uterine Resting Tone: Soft - Monitoring Monitor Mode: Spiral Electrode Heart Rate (FHR) Baseline: 140 Heart Rate (FHR) Variability: Moderate (6-25 bmp) Accelerations: Present, 15x15 Decelerations: Variable, Intermittent (<50% x 20 min) Strip Review: Category II - Vaginal Exam Dilation (cm): 7 Effacement (Percent): 90 Station: 1 Cervical Position: Anterior Sterile Vaginal Exam Performed By: David Henriquez - Labor Progress (Free Text) Labor Progress: Mallorie Montgomery is a 34-year-old -0-0-0 female at 38 weeks 0 days undergoing medically indicated induction of labor for gestational hypertension Patient with slow progress at this time. We will continue to monitor closely to ensure that there is ongoing cervical change. Continue Pitocin for induction of labor. May increase total dose up to 30 milliunits/min Continue routine vitals and monitor for any severe range blood pressures that may require treatment with antihypertensive medications Continue regular diet Continuous monitoring with scalp electrode and intrauterine pressure catheter Patient with epidural in place and has had several episodes of relative hypotension compared to previous elevated blood pressures. We will continue to work on blood pressure management and control. Anticipate vaginal delivery unless otherwise indicated David Henriquez MD 8:54 AM 11/13/2019
[2019-11-13] MEDS ORDERED: Oxytocin/Lactated Ringers 20 UNIT/1,000 ML BAG IV SCH ×2 (09:15→17:29)
[2019-11-13] MEDS: Bupivacaine/fentaNYL/NS 100 ML Bag EPIDUR SCH (12:08)
--- NOTE | 2019-11-13 14:54 | PCM.PNLD ---
Labor Progress Note - VS & Meds Vital Signs: Last Vital Signs Temp Pulse Resp 16 11/12/19 11:18 BP 140/97 H 11/12/19 11:18 Pulse Ox 97 11/12/19 11:18 Active Medications: Current Medications Calcium Gluconate (Calcium Gluconate) 1 gm IV ASDIRECTED PRN PRN Reason: respiratory distress Ephedrine Sulfate (Ephedrine Sulfate) 5 mg IVPUSH ASDIRECTED PRN PRN Reason: Hypotension Fentanyl (Sublimaze) 100 mcg EPIDUR Q3H PRN PRN Reason: Pain Last Admin: 11/12/19 22:51 Dose: 100 mcg Documented by: Fentanyl/Bupivacaine HCl (Fentanyl/Bupivacaine/Ns 2 Mcg-0.125% 100 Ml) 100 ml EPIDUR ASDIRECTED ARTURO Last Admin: 11/13/19 12:08 Dose: 100 ml Documented by: Lactated Ringer's (Ringers, Lactated) 1,000 mls @ 100 mls/hr IV ASDIRECTED ARTURO Last Admin: 11/13/19 04:09 Dose: 100 mls/hr Documented by: Oxytocin/Lactated Ringer's (Pitocin In Lr 10 Units/1,000 Ml) 10 unit in 1,000 mls @ 12 mls/hr IV TITRATE ARTURO; Protocol Last Titration: 11/13/19 07:40 Dose: 16 munits/min, 96 mls/hr Documented by: Oxytocin/Lactated Ringer's (Pitocin In Lr 10 Units/1,000 Ml) 10 unit in 1,000 mls @ 100 mls/hr IV .CONTINUOUS ARTURO Oxytocin/Lactated Ringer's (Pitocin In Lr 20 Units/1,000 Ml) 20 unit in 1,000 mls @ 60 mls/hr IV TITRATE ARTURO; Protocol Last Admin: 11/13/19 09:15 Dose: 60 mls/hr Documented by: Miscellaneous Medication (Phenylephrine 1 Mg/10 Ml-Ns) 1 mg IVPUSH ONETIME ARTURO Nalbuphine HCl (Nubain) 10 mg IVPUSH Q2H PRN PRN Reason: Pain Ondansetron HCl (Zofran) 4 mg IVPUSH ONETIME PRN PRN Reason: Nausea/Vomiting Sodium Chloride (Saline Flush) 10 ml FLUSH ASDIRECTED PRN PRN Reason: Keep Vein Open - Uterine Contractions Uterine Monitoring Mode: IUPC Contraction Frequency (min): 2-5 Contraction Duration (sec): 60-75 Contraction Intensity: Strong Uterine Resting Tone: Soft - Monitoring Monitor Mode: Spiral Electrode Heart Rate (FHR) Baseline: 155 Heart Rate (FHR) Variability: Moderate (6-25 bmp) Accelerations: Present, 15x15 Decelerations: Early, Variable, Intermittent (<50% x 20 min) Strip Review: Category II - Vaginal Exam Dilation (cm): 10 Effacement (Percent): 100 Station: 2 Cervical Position: Anterior Sterile Vaginal Exam Performed By: David Henriquez - Labor Progress (Free Text) Labor Progress: Mallorie Montgomery is a 34-year-old -0-0-0 female at 38 weeks 0 days undergoing medically indicated induction of labor for gestational hypertension Patient with elevated temperature to 38.7 C (101.6 F) without any other concerning features of infection. Clear fluid on cervical exam. Suspect that patient has isolated maternal fever with need for close monitoring for signs of infection. We will continue to monitor closely for signs of infection. Patient with cervical dilation at 9.5 cm with small rim of cervix on right side with ability to stretch to 10 cm. Continue Pitocin for induction of labor up to 30 milliunits/min Continue routine vitals and monitor for any severe range blood pressures that m ay require treatment with antihypertensive medications Continue regular diet Continuous monitoring with scalp electrode and intrauterine pressure catheter Patient with epidural in place and has had several episodes of relative hypotension compared to previous elevated blood pressures. We will continue to work on blood pressure management and control. We will allow patient to labor for a little while longer to try to get to complete dilation then plan to start pushing Anticipate vaginal delivery unless otherwise indicated David Henriquez MD 2:58 PM 11/13/2019
--- NOTE | 2019-11-13 17:18 | PCM.DEL ---
L & D Note - General Info Date of Service: 11/13/19 Mother's Due Date: 11/27/19 - Delivery Note Labor: Augmented by ARM, Augmented by Oxytocin Cervical Ripening Method: Balloon Device (18 Martiniquais Epps bulb with 50 mL sterile saline) Delivery Outcome: Livebirth Delivery Method: Spontaneous Vaginal Delivery-Single Presentation: Right Occiput Anterior ([place]) Nuchal Cord: None Anesthesia Type: Epidural Amniotic Fluid Description: Clear Episiotomy Type: None Laceration: 2nd Degree (midline perineal laceration) Suture type: Vicryl Suture size: 3-0 Placenta: Intact, Spontaneous Cord: 3 Vessels Estimated Blood Loss: 300 : Bulb Syringe, Stimulated, Warmed, [place] Used Provider: David Henriquez Score 1 min: 8 Score 5 min: 9 Second Stage Interventions: Reports: Pushing Effectively, Pushing, Stirrups/Leg Supports Delivery Comments (Free Text/Narrative):: Stage I: Mallorie Montgomery was admitted following monitoring for gestational hypertension versus preeclampsia. Patient had an elevated blood pressure in the clinic when she was seen on 11/12/2019 and was sent down to labor and delivery for additional monitoring. She continued to have mild range blood pressures while she was being monitored on labor and delivery and decision was made for her to admitted for medically indicated induction of labor. On admission her cervix was dilated to 1 cm. She was GBS negative. She was started on Pitocin for induction of labor. She made slow progress over the first 4 hours while being on Pitocin. She had a transcervical 18 Martiniquais Epps bulb placed manually and filled with 50 mL of sterile saline. A Epps bulb came out spontaneously approximately 1.5 hours after placement. She had artificial rupture membranes with return of clear fluid. She was given an epidural for anesthesia. She had some relative hypotensive blood pressures after placement of the epidural and had placement of scalp electrode for ongoing monitoring of the heart rate due to difficulty during these hypotensive episodes. She had an intrauterine pressure catheter placed for close monitoring of her contractions during the abnormal heart rate pattern. She was continued on Pitocin throughout the evening of hospital day #1 into the morning of hospital day #2. In the morning of hospital day #2 the Pitocin was increased up to a maximum of 30 milliunits/min to try and get a more favorable contraction pattern. She developed an isolated maternal fever without any evidence of intra-amniotic infection. Her highest temperature was 38.7 C (101.6 F). She made progression throughout hospital day #2 until she progressed to complete and pushing. Stage II: On 11/13/2019 she had a normal vaginal delivery of a live female infant at 16:14. Apgars of 8 & 9. Weight of 2780 g (6 lbs 2.1 oz). Length of 19.0 inches. There was no nuchal cord. Infant was delivered in [place] position. The cord was doubly clamped and cut by father the . was placed on mother's abdomen. Stage III: She had a spontaneous delivery of an intact placenta in [place] presentation. Three vessel cord. She was given pitocin and fundal massage. She had a second-degree midline perineal laceration that was repaired with 3-0 Vicryl. Mom and baby were stable to recovery. EBL of 300 mL. David Henriquez MD 5:12 PM 11/13/2019 Induction Criteria - Almaraz Score Almaraz Score Dilation: 1-2 cm Almaraz Score Effacement: >80% Almaraz Score 's Station: -1 ,0 Almaraz Score Consistency: Soft Almaraz Score Cervix Position: Anterior Almaraz Score Total: 10 Almaraz Score Presenting Part: Reports: Cephalic - Induction Gestational Age >/= 39 wks: No Medical Indication: Gestational hypertension Estimated Pelvis: Reports: Adequate Reassuring Monitoring Strip: Yes Absence of Tachy Systole: Yes - Augmentation Estimated Pelvis: Reports: Adequate Weight Estimated:: Reports: AGA Reassuring Monitoring Strip: Yes Absence of Tachy Systole: Yes - General Info Date of Service: 11/13/19 - Patient Data Vitals - Most Recent: Last Vital Signs Temp Pulse Resp 16 11/12/19 11:18 BP 140/97 H 11/12/19 11:18 Pulse Ox 97 11/12/19 11:18 Weight - Most Recent: 117.027 kg I&O - Last 24 Hours: Intake & Output 11/13/19 11/13/19 11/13/19 06:59 14:59 22:59 Intake Total 360 Balance 360 Med Orders - Current: Current Medications Calcium Gluconate (Calcium Gluconate) 1 gm IV ASDIRECTED PRN PRN Reason: respiratory distress Ephedrine Sulfate (Ephedrine Sulfate) 5 mg IVPUSH ASDIRECTED PRN PRN Reason: Hypotension Fentanyl (Sublimaze) 100 mcg EPIDUR Q3H PRN PRN Reason: Pain Last Admin: 11/12/19 22:51 Dose: 100 mcg Documented by: Fentanyl/Bupivacaine HCl (Fentanyl/Bupivacaine/Ns 2 Mcg-0.125% 100 Ml) 100 ml EPIDUR ASDIRECTED ARTURO Last Admin: 11/13/19 12:08 Dose: 100 ml Documented by: Lactated Ringer's (Ringers, Lactated) 1,000 mls @ 100 mls/hr IV ASDIRECTED ARTURO Last Admin: 11/13/19 04:09 Dose: 100 mls/hr Documented by: Oxytocin/Lactated Ringer's (Pitocin In Lr 10 Units/1,000 Ml) 10 unit in 1,000 mls @ 12 mls/hr IV TITRATE ARTURO; Protocol Last Titration: 11/13/19 07:40 Dose: 16 munits/min, 96 mls/hr Documented by: Oxytocin/Lactated Ringer's (Pitocin In Lr 10 Units/1,000 Ml) 10 unit in 1,000 mls @ 100 mls/hr IV .CONTINUOUS ARTURO Oxytocin/Lactated Ringer's (Pitocin In Lr 20 Units/1,000 Ml) 20 unit in 1,000 mls @ 60 mls/hr IV TITRATE ARTURO; Protocol Last Admin: 11/13/19 09:15 Dose: 60 mls/hr Documented by: Miscellaneous Medication (Phenylephrine 1 Mg/10 Ml-Ns) 1 mg IVPUSH ONETIME ARTURO Nalbuphine HCl (Nubain) 10 mg IVPUSH Q2H PRN PRN Reason: Pain Ondansetron HCl (Zofran) 4 mg IVPUSH ONETIME PRN PRN Reason: Nausea/Vomiting Sodium Chloride (Saline Flush) 10 ml FLUSH ASDIRECTED PRN PRN Reason: Keep Vein Open - Problem List & Annotations (1) 37 weeks gestation of SNOMED Code(s): 96726827 Code(s): Z3A.37 - 37 WEEKS GESTATION OF Status: Acute Current Visit: Yes (2) Gestational hypertension SNOMED Code(s): 548852796 Code(s): O13.9 - GESTATIONAL HTN W/O SIGNIFICANT PROTEINURIA, UNSP TRIMESTER Status: Acute Current Visit: Yes (3) Obesity affecting SNOMED Code(s): 581035638318, 305068200542 Code(s): O99.210 - OBESITY COMPLICATING , UNSPECIFIED TRIMESTER Status: Acute Current Visit: Yes (4) ancestry requiring population-specific genetic screening SNOMED Code(s): 67540346, 372625159, 894738622 Code(s): Z13.79 - ENCNTR FOR OTH SCREENING FOR GENETIC AND CHROMSOML ANOMALIES Status: Acute Current Visit: Yes (5) Aspirin allergy SNOMED Code(s): 937662316 Code(s): Z88.8 - ALLERGY STATUS TO OTH DRUG/MEDS/BIOL SUBST STATUS Status: Acute Current Visit: Yes (6) Vaginal delivery SNOMED Code(s): 432018866 Code(s): O80 - ENCOUNTER FOR FULL-TERM UNCOMPLICATED DELIVERY Status: Acute Current Visit: Yes (7) Second degree perineal laceration during delivery SNOMED Code(s): 9653408 Code(s): O70.1 - SECOND DEGREE PERINEAL LACERATION DURING DELIVERY Status: Acute Current Visit: Yes - Problem List Review Problem List Initiated/Reviewed/Updated: Yes - My Orders Last 24 Hours: My Active Orders 11/13/19 09:15 Oxytocin/Lactated Ringers [Pitocin in LR 20 Units/1,000 ML] 20 unit in 1,000 ml IV TITRATE 11/13/19 17:00 Patient Status Manage Transfer [TRANSFER] Routine - Plan Plan:: Mallorie Montgomery is a 34-year-old -0-0-1 status post complicated by gestational hypertension, intrapartum isolated maternal fever without evidence of intra-amniotic infection, aspirin allergy and ancestry Admit to inpatient following normal spontaneous vaginal delivery Continue Pitocin per unit protocol following delivery of placenta and lactated Ringer's until tolerating regular diet Regular diet Vitals per unit routine Monitor for any elevated blood pressures which may indicate need for ongoing antihypertensive medications to monitor for systolic blood pressure to be less than 150 and diastolic blood pressure to be less than 100 Tylenol for pain control. Patient has anaphylaxis reaction to ibuprofen and should not be used for pain control. Assist with breast-feeding as needed Continue to monitor lochia Anticipate discharge home on day #2 David Henriquez MD 5:12 PM 11/13/2019
[2019-11-13] MEDS ORDERED: Witch Hazel Medicated Pads 40/Jar TOP PRN (17:29)
[2019-11-13] MEDS ORDERED: Docusate Sodium 100 MG Cap PO PRN (17:29)
[2019-11-13] MEDS ORDERED: Hydrocortisone Acetate 25 MG Supp RECTAL PRN (17:29)
[2019-11-13] MEDS ORDERED: Magnesium Hydroxide 400 MG/5 ML Susp 30 ML Cup PO PRN (17:29)
[2019-11-13] MEDS ORDERED: Benzocaine/Menthol 20%-0.5% Spray 56 GM Canister TOP PRN (17:29)
[2019-11-13] MEDS: Acetaminophen 325 MG Tab PO PRN (18:52)
[2019-11-14] MEDS: Acetaminophen 325 MG Tab PO PRN ×2 (03:38→15:16)
[2019-11-14] MEDS ORDERED: Prenatal Multivitamin with Calcium/Folic Acid/Iron Tab PO SCH (09:00)
--- NOTE | 2019-11-14 09:32 | PCM.SN.2 ---
- Free Text/Narrative Note: Post Progress Note PPD #1 Subjective: Doing well overall. Ambulating without difficulty. Lochia minimal. Voiding without difficulty. Tolerating regular diet without nausea or vomiting. Pain overall controlled with oral medications. Reports that she is having some mild back pain where she had injections for the epidural as well as some minor cramping that is overall controlled with the Tylenol. Reports that it is being controlled for about 2 hours and feels like it could have better control with a higher dose of the Tylenol. Bottlefeeding with minimal difficulty. Patient tried breast-feeding but was unsuccessful. Plans to pump breastmilk for feeding with formula supplementation. Objective: Vitals: Vital Signs - 24 hr 11/13/19 11/14/19 11/14/19 20:44 03:40 08:00 Temperature 36.8 C 36.6 C 36.8 C Pulse, 95 90 92 Peripheral Respiratory 16 15 16 Rate Blood Pressure 113/90 139/83 137/91 H O2 Sat by Pulse 98 98 97 Oximetry Physical Exam General: Alert and oriented, no acute distress Lungs: Clear to auscultation bilaterally Heart: Regular rate and rhythm Abdomen: Soft, minimal appropriate tenderness, non-distended, fundus midline, nontender, and at the umbilicus Extremities: No edema Laboratory Tests 11/12/19 11/12/19 11/12/19 Range/Units 11:35 11:45 11:51 WBC 6.15 (3.98-10.04) K/mm3 RBC 4.77 (3.98-5.22) M/mm3 Hgb 12.5 (11.2-15.7) gm/dl Hct 37.7 (34.1-44.9) % MCV 79.0 L (79.4-94.8) fl MCH 26.2 (25.6-32.2) pg MCHC 33.2 (32.2-35.5) g/dl RDW Std Deviation 40.4 (36.4-46.3) fL Plt Count 166 L (182-369) K/mm3 MPV 12.8 H (9.4-12.3) fl Neut % (Auto) 56.0 (34.0-71.1) % Lymph % (Auto) 30.9 (19.3-51.7) % [place] % (Auto) 11.9 (4.7-12.5) % Eos % (Auto) 0.5 L (0.7-5.8) Baso % (Auto) 0.2 (0.1-1.2) % Neut # (Auto) 3.45 (1.56-6.13) K/mm3 Lymph # (Auto) 1.90 (1.18-3.74) K/mm3 [place] # (Auto) 0.73 H (0.24-0.36) K/mm3 Eos # (Auto) 0.03 L (0.04-0.36) K/mm3 Baso # (Auto) 0.01 (0.01-0.08) K/mm3 Sodium (136-145) mEq/L Potassium (3.5-5.1) mEq/L Chloride (98-107) mEq/L Carbon Dioxide (21-32) mEq/L Anion Gap (5-15) BUN (7-18) mg/dL Creatinine (0.55-1.02) mg/dL Est Cr Clr Drug Dosing Estimated GFR (MDRD) (>60) mL/min BUN/Creatinine Ratio (14-18) Glucose (74-106) mg/dL Calcium (8.5-10.1) mg/dL Total Bilirubin (0.2-1.0) mg/dL AST (15-37) U/L ALT (14-59) U/L Alkaline Phosphatase (46-116) U/L Total Protein (6.4-8.2) g/dl Albumin (3.4-5.0) g/dl Globulin gm/dL Albumin/Globulin Ratio (1-2) Ur Random Creatinine 135.5 H (30.0-125.0) mg/dL U Random Total Protein 17.1 H (0.0-11.8) mg/dL Protein/Creatinin Ratio 126.2 (0-149) mg/g RPR (NONREACTIVE) SARS CoV-2 RNA Rapid JOSE MARTIN Negative (NEGATIVE) 11/12/19 11/12/19 Range/Units 11:51 11:51 WBC (3.98-10.04) K/mm3 RBC (3.98-5.22) M/mm3 Hgb (11.2-15.7) gm/dl Hct (34.1-44.9) % MCV (79.4-94.8) fl MCH (25.6-32.2) pg MCHC (32.2-35.5) g/dl RDW Std Deviation (36.4-46.3) fL Plt Count (182-369) K/mm3 MPV (9.4-12.3) fl Neut % (Auto) (34.0-71.1) % Lymph % (Auto) (19.3-51.7) % [place] % (Auto) (4.7-12.5) % Eos % (Auto) (0.7-5.8) Baso % (Auto) (0.1-1.2) % Neut # (Auto) (1.56-6.13) K/mm3 Lymph # (Auto) (1.18-3.74) K/mm3 [place] # (Auto) (0.24-0.36) K/mm3 Eos # (Auto) (0.04-0.36) K/mm3 Baso # (Auto) (0.01-0.08) K/mm3 Sodium 137 (136-145) mEq/L Potassium 3.8 (3.5-5.1) mEq/L Chloride 103 (98-107) mEq/L Carbon Dioxide 20 L (21-32) mEq/L Anion Gap 17.8 H (5-15) BUN 6 L (7-18) mg/dL Creatinine 0.8 (0.55-1.02) mg/dL Est Cr Clr Drug Dosing TNP Estimated GFR (MDRD) > 60 (>60) mL/min BUN/Creatinine Ratio 7.5 L (14-18) Glucose 81 (74-106) mg/dL Calcium 8.9 (8.5-10.1) mg/dL Total Bilirubin 0.5 (0.2-1.0) mg/dL AST 19 (15-37) U/L ALT 21 (14-59) U/L Alkaline Phosphatase 193 H (46-116) U/L Total Protein 7.2 (6.4-8.2) g/dl Albumin 2.6 L (3.4-5.0) g/dl Globulin 4.6 gm/dL Albumin/Globulin Ratio 0.6 L (1-2) Ur Random Creatinine (30.0-125.0) mg/dL U Random Total Protein (0.0-11.8) mg/dL Protein/Creatinin Ratio (0-149) mg/g RPR Non-reactive (NONREACTIVE) SARS CoV-2 RNA Rapid JOSE MARTIN (NEGATIVE) ASSESSMENT: 34-year-old female -0-0-1 s/p normal vaginal delivery PPD #1, complicated by gestational hypertension, intrapartum isolated maternal fever without evidence of intra-amniotic infection, aspirin allergy and ancestry PLAN: Doing well Bottlefeeding with minimal difficulty. Plans to pump breastmilk for feeding infant with formula supplementation. Assist as needed Lochia minimal. Continue to monitor for appropriate lochia. Continue routine care Patient with moderate control of her pain. Plan to increase Tylenol to 975 mg every 6 hours as needed for pain. Anticipate discharge home tomorrow David Henriquez MD 9:31 AM 11/14/2019
[2019-11-15] MEDS: Acetaminophen 325 MG Tab PO PRN (00:27)
[2019-11-15] MEDS ORDERED: Zolpidem 5 MG Tab PO ONE (01:42)
[2019-11-15] MEDS ORDERED: Cyclobenzaprine 10 MG Tab PO PRN (01:43)
--- NOTE | 2019-11-15 06:17 | PCM48HPAN ---
Post Anesthesia Note - EVALUATION WITHIN 48HRS OF ANESTHETIC Vital Signs in Normal Range: Yes Patient Participated in Evaluation: Yes Respiratory Function Stable: Yes Airway Patent: Yes Cardiovascular Function Stable: Yes Hydration Status Stable: Yes Pain Control Satisfactory: Yes Nausea and Vomiting Control Satisfactory: Yes Mental Status Recovered: Yes Vital Signs: Last Vital Signs Temp 36.7 C 11/15/19 04:50 Pulse 68 11/15/19 04:50 Resp 14 11/15/19 04:50 BP 122/75 11/15/19 04:50 Pulse Ox 97 11/15/19 04:50 - COMMENTS/OBSERVATIONS Free Text/Narrative:: Patient had pain/tenderness in back. She said heat made it worse. Encouraged her to use ice X20 minutes PRN since ibuprofen is an allergy/adverse reaction. Plan is to discharge today per nursing. No additional questions/concerns.
--- NOTE | 2019-11-15 07:16 | PCM.DCSUM1 ---
Discharge Summary - Hospital Course Brief History: Admitted for IOL subsequent to elevated blood pressures. Uncomplicated and course Diagnosis: Stroke: No - Discharge Data Discharge Date: 11/15/19 Discharge Disposition: Home, Self-Care 01 Condition: Good - Referral to Home Health Primary Care Physician: PCP None - Patient Instructions Diet: Regular Diet as Tolerated Activity: Apply Ice, As Tolerated Activity, Other: Nothing in the vagina for 6 weeks Showering/Bathing: May Shower Notify Provider of: Fever, Increased Pain, Swelling and Redness, Drainage, Nausea and/or Vomiting Other/Special Instructions: Please contact your physician's office if you have heavy vaginal bleeding enough to soak a pad in less than an hour for several hours. Monitor for any signs of an infection in the breasts with severe pain or redness of the breast. - Discharge Plan *PRESCRIPTION DRUG MONITORING PROGRAM REVIEWED*: Not Applicable *COPY OF PRESCRIPTION DRUG MONITORING REPORT IN PATIENT KATYA: Not Applicable Home Medications: Home Meds B1/B2/B3/B5/B6/Iron/Meth/Choln [Geritol Tonic] 5 ml PO DAILY 11/12/19 [History] Pnv No.95/Ferrous Fum/Folic AC [ Tablet] 1 tab PO DAILY 11/12/19 [History] Acetaminophen [Tylenol] 975 mg PO Q6H PRN tablet 11/14/19 [Rx] Benzocaine/Menthol [Dermoplast Pain Relief [place]] 1 spray TOP ASDIRECTED PRN canister 11/14/19 [Rx] Docusate Sodium [Colace] 100 mg PO BID PRN cap 11/14/19 [Rx] Hydrocortisone Acetate [Anucort-HC] 25 mg RECTAL BID PRN supp 11/14/19 [Rx] witch Angel [Tucks] 1 pad TOP ASDIRECTED PRN pad 11/14/19 [Rx] Patient Handouts: Care of a Perineal Tear, Care After Vaginal Delivery Referrals: David Henriquez MD [Physician] - (Follow-up in clinic for routine visit on 11/19/2019 or 11/20/2019.) - Discharge Summary/Plan Comment DC Time >30 min.: No - General Info Date of Service: 11/15/19 Functional Status: Reports: Pain Controlled - Review of Systems General: Reports: No Symptoms HEENT: Reports: No Symptoms Pulmonary: Reports: No Symptoms Cardiovascular: Reports: No Symptoms Gastrointestinal: Reports: No Symptoms Genitourinary: Reports: No Symptoms Musculoskeletal: Reports: No Symptoms Skin: Reports: No Symptoms Neurological: Reports: No Symptoms Psychiatric: Reports: No Symptoms - Patient Data Vitals - Most Recent: Last Vital Signs Temp 36.7 C 11/15/19 04:50 Pulse 68 11/15/19 04:50 Resp 14 11/15/19 04:50 BP 122/75 11/15/19 04:50 Pulse Ox 97 11/15/19 04:50 Weight - Most Recent: 117.027 kg I&O - Last 24 hours: Intake & Output 11/14/19 11/15/19 11/15/19 22:59 06:59 14:59 Intake Total 560 Balance 560 Med Orders - Current: Current Medications Acetaminophen (Tylenol) 975 mg PO Q6H PRN PRN Reason: mild pain or fever Last Admin: 11/15/19 00:27 Dose: 975 mg Documented by: Benzocaine/Menthol (Dermoplast Pain Relief [place]) 0 gm TOP ASDIRECTED PRN PRN Reason: Perineal Comfort Measure Last Admin: 11/13/19 18:46 Dose: 1 canister Documented by: Cyclobenzaprine HCl (Flexeril) 10 mg PO TID PRN PRN Reason: Cramping Last Admin: 11/15/19 02:02 Dose: 10 mg Documented by: Docusate Sodium (Colace) 100 mg PO BID PRN PRN Reason: Constipation Last Admin: 11/14/19 18:16 Dose: 100 mg Documented by: Hydrocortisone Acetate (Anucort-Hc) 25 mg RECTAL BID PRN PRN Reason: Hemorrhoid pain Oxytocin/Lactated Ringer's (Pitocin In Lr 20 Units/1,000 Ml) 20 unit in 1,000 mls @ 500 mls/hr IV SEECOMMENT ARTURO; Protocol Magnesium Hydroxide (Milk Of Magnesia) 30 ml PO BEDTIME PRN PRN Reason: Constipation Prenat Multivit/Twilight/Iron/Folic Ac ( Plus Iron) 1 each PO DAILY ARTURO Last Admin: 11/14/19 08:03 Dose: 1 each Documented by: Lopez Diallo) 1 pad TOP ASDIRECTED PRN PRN Reason: Perineal Comfort Measure Last Admin: 11/13/19 18:46 Dose: 1 tub Documented by: Discontinued Medications Acetaminophen (Tylenol) 650 mg PO Q6H PRN PRN Reason: mild pain or fever Last Admin: 11/14/19 03:38 Dose: 650 mg Documented by: Bupivacaine HCl (Sensorcaine-Mpf 0.25%) 10 ml .ROUTE .STK-MED ONE Stop: 11/13/19 00:01 Calcium Gluconate (Calcium Gluconate) 1 gm IV ASDIRECTED PRN PRN Reason: respiratory distress Ephedrine Sulfate (Ephedrine Sulfate) 5 mg IVPUSH ASDIRECTED PRN PRN Reason: Hypotension Ephedrine Sulfate (Ephedrine 25 Mg/5 Ml Syringe) 25 mg IV .STK-MED ONE Stop: 11/13/19 00:01 Fentanyl (Sublimaze) 100 mcg EPIDUR Q3H PRN PRN Reason: Pain Last Admin: 11/12/19 22:51 Dose: 100 mcg Documented by: Fentanyl/Bupivacaine HCl (Fentanyl/Bupivacaine/Ns 2 Mcg-0.125% 100 Ml) 100 ml EPIDUR ASDIRECTED ARTURO Last Admin: 11/13/19 12:08 Dose: 100 ml Documented by: Lactated Ringer's (Ringers, Lactated) 1,000 mls @ 100 mls/hr IV ASDIRECTED ARTURO Last Admin: 11/13/19 04:09 Dose: 100 mls/hr Documented by: Oxytocin/Lactated Ringer's (Pitocin In Lr 10 Units/1,000 Ml) 10 unit in 1,000 mls @ 12 mls/hr IV TITRATE ARTURO; Protocol Last Titration: 11/13/19 07:40 Dose: 16 munits/min, 96 mls/hr Documented by: Oxytocin/Lactated Ringer's (Pitocin In Lr 10 Units/1,000 Ml) 10 unit in 1,000 mls @ 100 mls/hr IV .CONTINUOUS ARTURO Last Admin: 11/13/19 18:46 Dose: 100 mls/hr Documented by: Oxytocin/Lactated Ringer's (Pitocin In Lr 20 Units/1,000 Ml) 20 unit in 1,000 mls @ 60 mls/hr IV TITRATE ARTURO; Protocol Last Admin: 11/13/19 09:15 Dose: 60 mls/hr Documented by: Lidocaine HCl (Xylocaine 1%) 10 ml .ROUTE .STK-MED ONE Stop: 11/13/19 00:01 Lidocaine HCl (Xylocaine 1%) 10 ml .ROUTE .STK-MED ONE Stop: 11/13/19 00:01 Miscellaneous Medication (Phenylephrine 1 Mg/10 Ml-Ns) 1 mg IVPUSH ONETIME ARTURO Nalbuphine HCl (Nubain) 10 mg IVPUSH Q2H PRN PRN Reason: Pain Ondansetron HCl (Zofran) 4 mg IVPUSH ONETIME PRN PRN Reason: Nausea/Vomiting Sodium Chloride (Saline Flush) 10 ml FLUSH ASDIRECTED PRN PRN Reason: Keep Vein Open Zolpidem Tartrate (Ambien) 5 mg PO ONETIME ONE Stop: 11/15/19 01:43 Last Admin: 11/15/19 05:53 Dose: Not Given Documented by: - Exam General: Reports: Alert, Oriented HEENT: Reports: Pupils Equal, Pupils Reactive, EOMI, Mucous Membr. Moist/[place] Neck: Reports: Supple Lungs: Reports: Normal Respiratory Effort Cardiovascular: Reports: Regular Rate, Regular Rhythm GI/Abdominal Exam: Normal Bowel Sounds, Soft, Non-Tender, No Organomegaly Back Exam: Reports: Normal Inspection, Full Range of Motion Extremities: Normal Inspection, Normal Range of Motion, Non-Tender, No Pedal Edema, Normal Capillary Refill Skin: Reports: Warm, Dry Neurological: Reports: No New Focal Deficit Psy/Mental Status: Reports: Alert, Normal Affect, Normal Mood
[2019-11-15 10:15] VITALS: BP 132/70; PULSE 88
== END 2019-11-15 14:20 | disposition home or self-care (01) | DRG 807 ==
LOC: JD.OBCHECK 11:07 → JD.OB 11:14 → JD.OBCHECK 14:52 → JD.OB 14:53 → OBSVTOIN 11-13 16:14 → JD.OB 11-13 16:15
PROVIDERS: ADMIT Obstetrics & Gynecology; ATTEND Obstetrics & Gynecology
PROC: 10E0XZZ Delivery of Products of Conception, External Approach (ICD-10-PCS; principal; 2019-11-13)
PROC: 0KQM0ZZ Repair Perineum Muscle, Open Approach (ICD-10-PCS; 2019-11-13)
PROC: 10907ZC Drainage of Amniotic Fluid, Therapeutic from Products of Conception, Via Natural or Artificial Opening (ICD-10-PCS; 2019-11-13)
PROC: 3E0P7VZ Introduction of Hormone into Female Reproductive, Via Natural or Artificial Opening (ICD-10-PCS; 2019-11-13)
PROC: 10H07YZ Insertion of Other Device into Products of Conception, Via Natural or Artificial Opening (ICD-10-PCS; 2019-11-13)
PROC: 3E0R3BZ Introduction of Anesthetic Agent into Spinal Canal, Percutaneous Approach (ICD-10-PCS; 2019-11-13)
PROC: 00HU33Z Insertion of Infusion Device into Spinal Canal, Percutaneous Approach (ICD-10-PCS; 2019-11-13)
DX: O13.4 Gestational [pregnancy-induced] hypertension without significant proteinuria, complicating childbirth (principal); Z37.0 Single live birth; O99.214 Obesity complicating childbirth; Z3A.37 37 weeks gestation of pregnancy; Z13.79 Encounter for other screening for genetic and chromosomal anomalies; Z88.6 Allergy status to analgesic agent; O86.4 Pyrexia of unknown origin following delivery; Z20.828 Contact with and (suspected) exposure to other viral communicable diseases
CPT/HCPCS: 01967; 36415; 51702; 59025; 59200; 59409; 80053; 82570; 84156; 85025; 86592; A9270-GY; J0171; J2001; J2590; J3010; J3490; J7120; U0002

== ENCOUNTER 2021-04-05 09:53 | Emergency (ER) | payer SELFPAY ==
[2021-04-05] MEDS: Sodium Chloride 0.9% 10 ML Syringe FLUSH PRN (11:20)
[2021-04-05] MEDS: Ondansetron 4 MG/2 ML SDV IVPUSH ONE (11:24)
[2021-04-05] MEDS: Sodium Chloride 0.9% 1,000 ML IV ONE (11:26)
[2021-04-05] MEDS: Sodium Chloride 0.9% 10 ML Syringe FLUSH ONE (13:23)
[2021-04-05] MEDS: Iopamidol 755 Mg/ML 100 ML Bottle IVPUSH ONE (13:23)
[2021-04-05] MEDS: Sodium Chloride 0.9% 100 ML IV SCH (13:24)
[2021-04-05 14:43] VITALS: BP 124/85; PULSE 87
== END 2021-04-05 14:43 | disposition home or self-care (01) ==
LOC: JD.ED 09:53
DX: R09.1 Pleurisy (principal); R19.7 Diarrhea, unspecified; E66.9 Obesity, unspecified; Z88.8 Allergy status to other drugs, medicaments and biological substances; Z86.16 Personal history of COVID-19; Z86.19 Personal history of other infectious and parasitic diseases; Z68.39 Body mass index [BMI] 39.0-39.9, adult
CPT/HCPCS: 36415; 71046; 71275; 80053; 83735; 84484; 85025; 85379; 85610; 85730; 93005; 96374; 99284; J2405; J7030; Q9967

== ENCOUNTER 2023-01-21 14:17 | Emergency (ER) | payer SELFPAY ==
[2023-01-21 15:23] LABS: CORONAVIRUS COVID-19 NAA NEGATIVE (NEGATIVE); INFLUENZA A NAA NEGATIVE (NEGATIVE)
[2023-01-21 15:29] LABS: A/G RATIO 0.8 (1-2); ALBUMIN 3.5 g/dl (3.4-5.0); ANION GAP 15.8 (5-15); BILIRUBIN TOTAL 0.4 mg/dL (0.2-1.0); C-REACTIVE PROTEIN 1.4 mg/dL (<1.0); EST CRCL DRUG DOSING (CG) 74.9 mL/min; POTASSIUM,K 3.8 mEq/L (3.5-5.1); PROTEIN TOTAL,TP 8.1 g/dl (6.4-8.2)
[2023-01-21 16:49] LABS: HEMATOCRIT 42.6 % (37.0-47.0); HEMOGLOBIN 13.9 gm/dl (12.0-16.0); MEAN CORPUSCULAR HEMOGLOBIN 25.8 pg (28.0-32.0); MEAN CORPUSCULAR HGB CONC 32.6 g/dl (32.0-36.0); MEAN PLATELET VOLUME 10.8 fl (9.4-12.3); PLATELET COUNT,PLT 248 K/mm3 (150-400); RED BLOOD CELL COUNT 5.39 M/mm3 (4.10-5.30); WHITE BLOOD CELL COUNT,WBC 5.23 K/mm3 (3.9-11.3)
[2023-01-21 17:23] LABS: BAND PERCENT MAN 2 % (0-10); BASOPHILS PERCENT MAN 0 (0.1-1.2); EOSINOPHILS PERCENT MAN 0 % (0.7-5.8); LYMPHOCYTES % ATYPICAL MANUAL 16 %; LYMPHOCYTES PERCENT MAN 20 % (20-40); METAMYELOCYTE PERCENT MAN 1; MONOCYTES PERCENT MAN 24 % (2-10)
[2023-01-21 17:24] LABS: PLATELET COUNT ESTIMATE ADEQUATE; TOXIC GRANULATION FEW
[2023-01-21] MEDS ORDERED: predniSONE 20 MG Tab PO ONE (18:10)
[2023-01-21] MEDS ORDERED: Acetaminophen 325 MG Tab PO ONE ×2 (18:12→18:45)
[2023-01-21] MEDS ORDERED: Acetaminophen 325 MG Tab ONE (18:15)
[2023-01-21 19:51] VITALS: BP 125/90; PULSE 92
[2023-01-24 08:46] LABS: EBV AB VCA, IGM <36.0 U/mL (0.0-35.9); EBV NUCLEAR ANTIGEN AB, IGG >600.0 U/mL (0.0-17.9)
== END 2023-01-21 18:28 | disposition home or self-care (01) ==
LOC: JD.ED 14:17
DX: R05.2 Subacute cough (principal); D72.821 Monocytosis (symptomatic); E66.9 Obesity, unspecified; Z68.37 Body mass index [BMI] 37.0-37.9, adult; Z86.16 Personal history of COVID-19; Z88.6 Allergy status to analgesic agent; Z88.8 Allergy status to other drugs, medicaments and biological substances; Z20.822 Contact with and (suspected) exposure to COVID-19
CPT/HCPCS: 0240U; 36415; 71046; 80053; 85007; 85027; 86140; 86308; 86665; 99284; A9270; J7512

== ENCOUNTER 2023-11-13 07:11 | Day surgery (SDC) | payer OTHER ==
[~2023-11-13 07:11] MED LIST: Sodium Chloride 0.9% 10 ML Syringe FLUSH PRN
[2023-11-13] MEDS: Lactated Ringers 1,000 ML IV SCH (07:30)
[2023-11-13] MEDS ORDERED: Propofol 200 MG/20 ML SDV ONE ×4 (08:05)
[2023-11-13] MEDS ORDERED: Lidocaine 2% 5 ML SDV ONE (08:07)
[2023-11-13] MEDS ORDERED: Sodium Chloride 0.9% 10 ML Syringe FLUSH SCH (09:00)
[2023-11-13 10:18] VITALS: BP 111/67; PULSE 68
== END 2023-11-13 10:15 | disposition home or self-care (01) ==
LOC: JD.SDS 07:11
PROVIDERS: ATTEND Surgery
DX: K21.00 Gastro-esophageal reflux disease with esophagitis, without bleeding (principal); K29.50 Unspecified chronic gastritis without bleeding; E66.9 Obesity, unspecified; I10 Essential (primary) hypertension
CPT/HCPCS: 43239; 81025; J2704; J3490; J7120; 00731